=== PATIENT | male | born 1985 | race Caucasian/White ===

== ENCOUNTER 2024-11-02 21:21 | Emergency (ER) | payer SELFPAY ==
[~2024-11-02] VITALS: Ht 180.3 cm; Wt 65.0 kg
[2024-11-02 21:34] VITALS: O2SAT 95
[2024-11-02 22:30] VITALS: BP 109/76; PULSE 88; RESP 18; TEMP 36.7; O2SAT 96
[2024-11-02] MEDS ORDERED: HYDROXYZINE 25MG TABLET PO ONE (22:30)
[2024-11-02] MEDS ORDERED: IBUPROFEN 600MG TABLET PO ONE (22:30)
[2024-11-02 23:59] LABS: CHLORIDE 104 mEq/L (98-107); POTASSIUM 3.9 mEq/L (3.5-5.1); SODIUM 135 mEq/L (136-145)
[2024-11-03] LABS: CARBON DIOXIDE 24 mEq/L (21-32)
[2024-11-03 00:05] LABS: CREATININE 0.9 mg/dL (0.6-1.3); GLUCOSE 91 mg/dL (70-105)
[2024-11-03 00:06] LABS: TROPONIN I HIGH SENSITIVITY 6 ng/L (3.0-53); UREA NITROGEN BLOOD 17 mg/dL (9-23)
[2024-11-03 00:07] LABS: CREATINE KINASE 549 IU/L (46-171)
[2024-11-03 00:11] LABS: BASOPHILS % 1.3 % (0.0-2.0); HEMATOCRIT. 39.2 % (42.0-52.0); HEMOGLOBIN. 13.1 g/dL (14.0-18.0); LYMPHOCYTES % 35.8 % (20.0-50.0); MEAN CORPUSCULAR HGB CONC 33.4 g/dL (31.0-37.0); MEAN CORPUSCULAR VOLUME 92.8 fL (80.0-94.0); MEAN PLATELET VOLUME 8.6 fl (7.4-10.4); MONOCYTES % 12.2 % (2.0-8.0); NEUTROPHILS % 45.7 % (40.0-76.0); PLATELET 228 x1000/uL (130-400); RED BLOOD CELL COUNT 4.23 mill/uL (4.7-6.1); RED CELL DISTRIBUTION WIDTH 13.8 % (11.6-14.6); WHITE BLOOD COUNT 6.8 x1000/uL (4.5-11.0)
[2024-11-03 00:17] LABS: ETHANOL BLOOD < 10 mg/dL (<10)
== END 2024-11-03 01:44 | disposition left against medical advice (07) ==
LOC: ER 21:21
DX: R07.89 Other chest pain (principal); Z88.8 Allergy status to other drugs, medicaments and biological substances; Z87.891 Personal history of nicotine dependence
CPT/HCPCS: 80048; 80320; 82550; 83880; 85025; 84484; 36415; 71045; 93005; 99285; Z7610; G0480